=== PATIENT | female | born 1945 | race Caucasian/White ===

== ENCOUNTER 2024-10-08 10:08 | Outpatient (CLI) | payer MEDICARE, BC ==
[2024-10-08] MEDS ORDERED: Magnevist 469MG/ML 20 ML VIAL ONE (14:53)
== END 2024-10-08 10:09 | disposition home or self-care (01) ==
LOC: CSHMRI 10:08
PROVIDERS: ATTEND Internal Medicine Gastroenterology
DX: R10.11 Right upper quadrant pain (principal); R07.2 Precordial pain; R19.7 Diarrhea, unspecified; K83.8 Other specified diseases of biliary tract; K86.89 Other specified diseases of pancreas
CPT/HCPCS: 74183; 76376; 82565